=== PATIENT | male | born 1995 | race Caucasian/White ===

== ENCOUNTER → 2021-06-07 | Outpatient (REF) | payer OTHER | LOC: M LAB REF 15:46 | PROVIDERS: ATTEND Physician Assistant | DX: R05.9 Cough, unspecified (principal) ==

== ENCOUNTER → 2021-09-04 | Outpatient (REF) | payer OTHER ==
[2021-09-04 18:27] LABS: RSV AMPLIFICATION NEGATIVE (NEGATIVE)
== END ==
LOC: M LAB REF 16:19
PROVIDERS: ATTEND Physician Assistant
DX: R50.9 Fever, unspecified (principal); R53.83 Other fatigue

== ENCOUNTER → 2024-03-24 | Outpatient (CLI) | payer OTHER | LOC: M EKG 15:12 | DX: F90.9 Attention-deficit hyperactivity disorder, unspecified type (principal) ==